=== PATIENT | female | born 1970 | race Caucasian/White ===

== ENCOUNTER 2022-04-22 18:31 | Inpatient (IN) | payer OTHER, SELFPAY ==
[2022-04-22] VITALS (26 sets, daily range): BP systolic 115–172; BP diastolic 82–110; PULSE 63–80; RESP 13–22; TEMP 36.1–36.4; O2SAT 97–100; BMI 39.6
--- NOTE | ~2022-04-22 | XR_ITS ---
EXAMINATION: XR chest ET placement Exam Date/Time: 04/22/2022 22:15 GEOSPATIAL ENGINEER HISTORY: After intubation to confirm ET placement Comparison: Same date at 7:01 PM. RESULT: Lines, tubes, and devices: Subdiaphragmatic NG tube. Endotracheal tube projecting 3.6 cm above the c liborio. Lungs and pleura: Slightly low volumes with scattered streaky opacities likely representing atelecta sis. Cardiomediastinal silhouette: Stable. Other: No acute osseous or upper abdominal finding. IMPRESSION: Endotracheal and NG tube, in good position. Reviewed, dictated and finalized at location K. PATIAL ENGINEER
--- NOTE | ~2022-04-22 | CT_ITS ---
EXAMINATION: CT brain wo con DATE: 04/22/2022 20:00 INDICATION: ams . TECHNIQUE: Computed tomography (CT) of the head was performed without intravenous contrast. The mA wa s adjusted according to patient size. Iterative reconstruction technique was employed. The dose-lengt h product was 681.00 mGy-cm. COMPARISON: None. FINDINGS: No acute intracranial hemorrhage or extra-axial fluid collection. No hydrocephalus, mass, or herniation. No acute ischemic infarct. Unremarkable dural venous sinus attenuation. No acute osseous abnormality. Mild mucosal thickening in the ethmoid air cells, the remaining aerated spaces are clear. IMPRESSION: No acute intracranial process. Reviewed, dictated and finalized at location K. CTOR WORK
--- NOTE | ~2022-04-22 | XR_ITS ---
EXAM: XR abdomen NG/feed tube insert DATE: 04/22/2022 19:15 HISTORY: OG PLACEMENT . COMPARISON: None available. FINDINGS: Cholecystomy clips. Surgical clips and suture line over the stomach. Clear lung bases. NG tube, tip and side port project over the stomach Normal bowel gas pattern. No organomegaly. No abnorm al abdominal calcification. Regional bones and soft tissues normal for age. IMPRESSION: NG tube, in good position. Reviewed, dictated and finalized at location K. EL POST CLERK IMPRESSION: NG tube, in good position.
--- NOTE | ~2022-04-22 | CT_ITS ---
EXAMINATION: CTA chest PE protocol DATE: 04/22/2022 20:03 INDICATION: respiratory distress, intubated, AMS TECHNIQUE: Computed tomography angiography (CTA) of the chest was performed with 100 mL Omnipaque-350 intravenous contrast timed to evaluate the pulmonary arteries. Coronal maximum intensity projection 3D-reconstructions were created by the technologist. The dose-length product (DLP) was 816.54 mGy-cm. Automated exposure control and iterative reconstruction technique were employed. COMPARISON: X-ray chest, same date. FINDINGS: Lung parenchyma and airways: Endotracheal tube, terminating in the lower thoracic trachea. Dependent atelectasis. Pleura: Unremarkable. Thoracic inlet, axillae and chest wall: Unremarkable. Thoracic aorta: Minimal arch ectasia and calcification.. Mediastinum: Normal. Heart and pericardium: Moderate hiatal hernia.. Coronary artery calcifications: Moderate. Upper abdomen: No significant finding. NG tube, in good position. Bones: No acute osseous finding. Pulmonary arteries: Study quality: Adequate. No pulmonary emboli detected. IMPRESSION: No CT evidence of acute pulmonary embolus. No acute thoracic process detected. Reviewed, dictated and finalized at location K. E LOG RIPSAW OPERATOR
--- NOTE | ~2022-04-22 | XR_ITS ---
EXAMINATION: XR chest ET placement Exam Date/Time: 04/22/2022 19:05 TABLE GAMES DUAL RATE SUPERVISOR HISTORY: post intubation, respiratory distress Comparison: None available. RESULT: Lines, tubes, and devices: Endotracheal tube terminating in the right mainstem bronchus. Subdiaphrag matic NG tube.. Lungs and pleura: Low volumes with crowding. No pneumothorax, focal consolidation, or large effusion. Cardiomediastinal silhouette: Stable. Other: No acute osseous or upper abdominal finding. IMPRESSION: Right mainstem bronchus intubation. At the time of dictation, the clinical team was aware of this fin ding and had repositioned the tube. Reviewed, dictated and finalized at location K. E GAMES DUAL RATE SUPERVISOR IMPRESSION: Right mainstem bronchus intubation. At the time of dictation, the clinical team was aware of this finding and had repositioned the tube.
--- NOTE | ~2022-04-22 | XR_ITS ---
Portable chest x-ray Comparison: 04/22/2022 Clinical History: Tube placement Findings: Endotracheal tube and NG tube are in satisfactory positions. Lungs remain clear. Cardiome diastinal silhouette is stable. Bones and soft tissues are unremarkable. Impression: Support tubes are unchanged. Clear lungs. Reviewed, dictated and finalized at location . ROLL WORKER Impression: Support tubes are unchanged. Clear lungs.
--- NOTE | 2022-04-22 18:40 | PC.NURSE ---
Pt given 20 Etomidate and 100 Nick at [address] Jang at bedside 6 1/2 tube, 23 at the lip, positive color change w/ equal bilat breath sounds/rise and fall
--- NOTE | 2022-04-22 18:45 | ECG_ITS ---
Measurements Intervals [place] Rate: 71 P: 55 VT: 161 QRS: 14 QRSD: 103 T: 39 QT: 410 QTc: 447 Interpretive Statements SINUS RHYTHM NONSPECIFIC ST & T-WAVE ABNORMALITY- ANTEROLAT/INF LEADS BASELINE ARTIFACT- V5 BORDERLINE ECG NO PREVIOUS ECG AVAILABLE FOR COMPARISON Electronically Signed On 04-22-2022 19:19:59 GUNSTOCK REPAIRER by Jerome Polanco D.O.
--- NOTE | 2022-04-22 18:50 | ED.AMS ---
HPI - Altered Mental Status General Chief Complaint: Altered Mental Status Stated Complaint: respiratory/nonresponsive Time Seen by Provider: 04/22/22 18:43 History of Present Illness HPI narrative: Patient is a 51-year-old female presenting with unresponsiveness. Patient is unresponsive on arrival, history is obtained by EMS at bedside. They were called for altered mental status and respiratory distress. Patient was getting ready to go to work when she started complaining to her that she felt weird. She then became unresponsive. By the time EMS arrived, she remained unresponsive with agonal respirations. She was given 2 mgs of Narcan with no response. She was noted to have equal and reactive pupils at the time. EMS attempted to intubate the patient but were unable to due to her small airway. She was given 4 mgs of Versed and 30 mgs of etomidate. On arrival, she is unresponsive. She is being bagged with 100% O2 sats. Related Data Home Medications Medication Instructions Recorded Confirmed diclofenac sodium 75 mg 75 mg PO BID 04/22/22 04/22/22 tablet,delayed release pregabalin 75 mg capsule 75 mg PO BID 04/22/22 04/22/22 quetiapine 300 mg tablet,extended 300 mg PO HS 04/22/22 04/22/22 release 24 hr trazodone 100 mg tablet 100 mg PO HS PRN Insomnia 04/22/22 04/22/22 venlafaxine 225 mg tablet,extended 225 mg PO DAILY 04/22/22 04/22/22 release 24 hr venlafaxine 75 mg capsule,extended 75 mg PO DAILY 04/22/22 04/22/22 release 24 hr lansoprazole 30 mg oral 60 mg PO DAILY 04/23/22 04/23/22 suspension,delayed release Allergies Allergy/AdvReac Type Severity Reaction Status Date / Time Penicillins Allergy Unknown Verified 04/23/22 16:06 Review of Systems Review of Systems: ROS unobtainable: Yes unobtainable due to endotracheal tube PMFSH Family History Family History (System 04/23/22 @ 16:06 by Janeth Cooney) Other Unknown family medical history Social History Social History (System 04/23/22 @ 16:06 by Janeth Cooney) Smoking status: Unknown if ever smoked Alcohol intake: current Substance use: never Spiritual care concerns: No Exam Narrative: GENERAL: Unresponsive, being bagged, 100% O2 sat HEAD: Normocephalic, atraumatic. EYES: PERRLA ENT: Blood in bilateral nares. NECK: Supple. CHEST: Coarse sounds bilaterally, being bagged by EMS, satting 100% HEART: Regular rate and rhythm ABDOMEN: Soft, nontender, nondistended EXTREMITIES: No edema. SKIN: Warm, dry, no rash. NEURO: unresponsive PSYCH: Normal mood and affect. Course Vital Signs Vital signs: Vital Signs Temperature 97.4 F L 04/22/22 18:36 Pulse Rate 72 04/22/22 18:36 Respiratory Rate 22 H 04/22/22 18:36 Blood Pressure 139/105 H 04/22/22 18:36 Pulse Oximetry 100 04/22/22 18:36 Oxygen Delivery Room Air 04/22/22 18:36 Temperature 99.2 F 04/23/22 04:00 Pulse Rate 78 04/23/22 12:00 Respiratory Rate 20 04/23/22 07:29 Blood Pressure 149/95 H 04/23/22 06:00 Pulse Oximetry 98 04/23/22 16:00 Oxygen Delivery Nasal Cannula 04/23/22 16:00 Oxygen Flow Rate 2 04/23/22 16:00 Fraction of Inspired Oxygen 35 04/23/22 09:17 Procedures Intubation Intubation #1: Intubation Date: 04/22/22 Intubation Time: 19:01 sedative: Etomidate Mg Given: 20 paralytic: Rocuronium Mg Given: 100 Laryngoscope: other (glidescope) Tube Size (cm): 6.5 Method of Intubation: orotracheal Number of Attempts: 1 Tube Secured Depth (cm): 23 Tube Placement Confirmation: visualized tube passing through cords, equal breath sounds bilaterally, no breath sounds over epigastrium and confirmation by capnometry Patient Tolerated Procedure: well Intubation Complications: none Additional Comments: post intubation CXR with R mainstem intubation - tube withdrawn approximately 3cm MDM - Altered Mental Status MDM N
[2022-04-22] MEDS: SODIUM CHLORIDE 0.9% IV 1,000 ML 999 ML IV CONT (18:55)
[2022-04-22 19:01] LABS: Glucose Point of Care 99 mg/dl (65-105)
[2022-04-22 19:05] LABS: Appearance Urine Clear (Clear); Bilirubin Urine Negative (Negative); Blood Urine Negative (Negative); Color Urine Yellow (Yellow); Glucose Urine UA Negative (Negative); Ketones Urine Negative (Negative); Leukocyte Esterase Ur Negative LEU/UL (Negative); Nitrate Urine Negative (Negative); Protein Urine Negative (Negative); Urobilinogen Urine 0.2 mg/dL (<2.0)
[2022-04-22] MEDS: FENTANYL 2,500MCG/NS250ML(*CRX 2,500 MCG/250 ML BAG IV CONT (19:05)
[2022-04-22 19:13] LABS: Bacteria Urine Trace /hpf; Mucus Urine Rare /lpf; RBC Urine 0-2 /hpf (0-2); Squamous Epithelial Cell Urine Rare /hpf (Few); WBC Urine 0-3 /hpf
[2022-04-22 19:17] LABS: Add Urine Microscopic? NO
[2022-04-22 19:23] LABS: Amphetamine Screen Urine Negative (Negative); Barbiturate Screen Urine Negative (Negative); Benzodiazepines Screen Urine Negative (Negative); Cannabinoid Screen Urine Positive (Negative); Cocaine Screen Urine Negative (Negative); Methadone Screen Urine Negative (Negative); Opiate Screen Urine Positive (Negative); Phencyclidine Screen Urine Negative (Negative)
[2022-04-22 19:32] LABS: Basophils Absolute Auto 0.1 K/mm3 (0.0-0.1); Basophils Percent Auto 0.7 % (0.2-1.2); Eosinophils Absolute Auto 0.1 K/mm3 (0-0.3); Eosinophils Percent Auto 1.3 % (0-4.4); Hematocrit 43.1 % (37.0-47.0); Immature Granulocyte Absolute 0.03 K/mm3 (0.00-0.031); Immature Granulocyte Percent A 0.4 % (0-0.5); Lymphocytes Absolute Auto 2.09 K/mm3 (0.9-3.2); Lymphocytes Percent Auto 29.8 % (18.3-44.2); Mean Corpuscular HGB Conc 32.5 g/dl (32-36); Mean Corpuscular Hemoglobin 31.4 pg (26-34); Mean Corpuscular Volume 96.6 fl (80-100); Mean Platelet Volume 10.9 fl (7.4-10.4); Monocytes Absolute Auto 0.5 K/mm3 (0.1-0.6); Neutrophils Absolute Auto 4.3 K/mm3 (1.3-6.7); Neutrophils Percent Auto 60.8 % (45.5-73.1); Platelet Count Result 186 k/mm3 (150-375); Red Blood Count 4.46 M/mm3 (4.2-5.4); Red Cell Distribution Width 13.3 % (11.5-14.5)
[2022-04-22 19:40] LABS: Alveolar/Arterial O2 Gradient 254.6 mmHg; Base Excess ABG 1.7 mEq/l (+/-2.0); Fractional Inspired Oxygen 100 %; HCO3 ABG 28.1 mEq/l (22.0-26.0); Oxygen Content ABG 20.4 %vol (16.0-22.0); Oxygen Saturation ABG 99.8 % (95.0-100.0); Oxyhemoglobin 94.1 % THb (90.0-100.0); PCO2 ABG 50.9 mmHg (35.0-45.0); PO2 ABG 407.5 mmHg (80.0-100.0); PO2 FiO2 Ratio Arterial Blood 4.07 %; Total Hemoglobin 14.6 g/dL (12.0-18.0)
[2022-04-22 19:41] LABS: Device VENTILATOR; Modified Allen's Test Pass; Site Drawn RIGHT RADIAL
[2022-04-22 19:42] LABS: Arterial Blood Gas PEEP 5 cmH2O; Arterial Blood Gas Tidal Volume 400 ml; Arterial Blood Gas Vent Mode CMV; Arterial Blood Gas Ventilator rate 14 /MIN
[2022-04-22 19:42] LABS: Alanine Aminotransferase 14 U/L (6-35); Albumin Level 3.9 g/dL (3.5-5.1); Alkaline Phosphatase 93 U/L (38-126); Anion Gap 3 mmol/L (8-16); Aspartate Amino Transferase 25 U/L (14-36); Bilirubin,Total 0.7 mg/dL (0.2-1.3); Blood Urea Nitrogen 17 mg/dL (7-17); Calcium 8.6 mg/dL (8.4-10.2); Carbon Dioxide 28 mmol/L (22-30); Chloride 106 mmol/L (98-107); Estimated CRCL calculation 102 ml/min; Estimated Glomerular Filt Rate > 60; Glucose 94 mg/dL (65-110); Potassium 3.7 mmol/L (3.4-5.0); Sodium 137 mmol/L (137-145)
[2022-04-22 19:44] LABS: Prothrombin Time 13.2 Seconds (11.1-14.7)
[2022-04-22 19:45] LABS: Partial Thromboplastin Time 26.8 SECONDS (22.3-36.8)
[2022-04-22] MEDS: MIDAZOLAM HCL (*CRX) 2 MG/2 ML VIAL IV PUSH (19:47)
[2022-04-22 19:53] LABS: NT Pro B Type Natriuretic Pept 137 pg/mL (19.9-100); Troponin I < 0.012 ng/mL (0.000-0.034)
[2022-04-22 20:08] LABS: Influenza A QL RT-PCR Negative (Negative); Influenza B QL RT-PCR Negative (Negative); RSV RNA, RT-PCR Negative (Negative); SARS-CoV-2 RNA PCR Negative
[2022-04-22] MEDS: PROPOFOL IV EMULSION 100 ML 3.51 MG IV CONT (20:32)
--- NOTE | 2022-04-22 20:35 | PM.IMHP ---
H&P: HPI History of Present Illness Date/Time: 04/22/22 20:35 Chief Complaint: Unresponsive Narrative: Patient is intubated, history is taken from ER physician and the patient's family Patient is a 51-year-old female with a history of psychiatry and sleeping disorder, brought to ED because of unresponsiveness. Per patient , patient is scheduled to work in the night, patient is a nurse during heavy equipment rental associate. Patient smoked afternoon, and went to bedroom for a nap. Patient's went to her room above 5:30 to check her up, and patient was found unresponsive. Per patient's , patient had a weak pulse but was breathing. EMS was called, arrival, patient was found to have agonal respiration. EMS gave patient 2 mg of Narcan, they could not wake patient up. Because of difficult airway for intubation, patient was bagged and sent to ED. in the ED, patient was intubated. Patient was found to have equal round reactive pupils. Patient also found to have uncontrolled hypertension. Ct of head shows no acute intracranial a show, CTA shows no PE no acute pulmonary issues. Per ER physician report, patient was prescribed the prior Seroquel, trazodone, pregabalin. Per patient's , patient does not take these medications before going to work, and the patient did not have a suicide ideation or attempt before. Drug screening is positive marijuana and opiate, patient received fentanyl in the ED. CBCs CMP unremarkable. Coffee-ground like fluid is drained from NG tube. Your physician also consulted senior materials planner, we admit patient to the ICU for close monitoring Review of Systems Review of Systems: ROS unobtainable: Yes unobtainable due to endotracheal tube Meds Home Medications and Allergies Allergies Allergy/AdvReac Type Severity Reaction Status Date / Time Penicillins Allergy Unknown Verified 04/22/22 18:48 Vital Signs Vital Signs - 24 hr 04/22/22 18:36 04/22/22 18:43 04/22/22 19:05 Temperature 97.4 F L Pulse Rate 72 79 71 Respiratory Rate 22 H 14 Blood Pressure 139/105 H Pulse Oximetry 100 Oxygen Delivery Room Air 04/22/22 19:33 04/22/22 19:01 04/22/22 19:20 Temperature 96.9 F L 97.2 F L Pulse Rate 76 66 75 Respiratory Rate 13 14 14 Blood Pressure 162/98 H 157/104 H Pulse Oximetry 100 Oxygen Delivery 04/22/22 19:29 04/22/22 19:30 04/22/22 20:08 Temperature 97.2 F L 97.2 F L 97.1 F L Pulse Rate 75 80 Respiratory Rate 14 15 Blood Pressure 160/110 H Pulse Oximetry 100 Oxygen Delivery 04/22/22 20:10 04/22/22 20:15 04/22/22 20:16 Temperature 97.1 F L 97.1 F L 97.1 F L Pulse Rate 66 78 73 Respiratory Rate 16 17 15 Blood Pressure 153/106 H 172/92 H Pulse Oximetry 100 100 100 Oxygen Delivery 04/22/22 19:45 Temperature Pulse Rate 75 Respiratory Rate 14 Blood Pressure Pulse Oximetry Oxygen Delivery Exam Narrative: GENERAL: Unresponsive, in no acute distress. Obesity. - EYES: EOMI. Anicteric. - HENT: Moist mucous membranes. - LUNGS: Clear to auscultation bilaterally, no wheezing, rhonchi, or rales. - CARDIOVASCULAR: Regular rate and rhythm. No murmur. No JVD. - ABDOMEN: Soft, non-tender and non-distended. No palpable masses. - EXTREMITIES: No edema. Peripheral pulses 2+. Non-tender. - NEUROLOGIC: No focal neurological deficits. CN II-XII grossly intact. - PSYCHIATRIC: Unresponsive and not oriented x 3. - SKIN: No rashes or lesions. Warm. - LYMPH: No cervical lymphadenopathy. H&P: Results Labs Labs: Short CBC 04/22/22 Range/Units 19:21 WBC 7.0 (4.5-10.0) K/mm3 Hgb 14.0 (12.0-15.0) g/dL Hct 43.1 (37.0-47.0) % Plt Count 186 (150-375) k/mm3 BMP 04/22/22 19:21 Sodium 137 Potassium 3.7 Chloride 106 Carbon Dioxide 28 BUN 17 Creatinine 0.70 Glucose 94 Calcium 8.6 Cardiac Enzymes 04/22/22 Range/Units 19:21 Troponin I < 0.012 (0.000-0.034) ng/mL Liver Function 04/22/22 Range/Units 1
[2022-04-22 20:45] LABS: Lactic Acid Reflex 1.1 mmol/L (0.7-2.0)
[2022-04-22 21:22] LABS: Ethanol < 10 mg/dL (<10); Salicylate < 1.0 mg/dL (2-20)
[2022-04-22 21:23] LABS: Acetaminophen < 10 ug/mL (10-30)
--- NOTE | 2022-04-22 21:44 | ADMGEN ---
This patient, Julianna Wallace, was admitted to Intensive Care Unit-8 at 2130. Patient/family oriented to hospital policies and general routines including ID bracelet, bed and alarms, visiting hours, pain management, procedures, bathroom and other care routines, personal items, smoking policy, room service/diet, and visiting hours. Information on how to activate the Rapid Response Team has been discussed. Patient/Family are encouraged to report perceived risks to care and to ask questions if they do not understand what they are told or what they should do.
[2022-04-22 21:52] LABS: Hemoglobin 13.8 g/dL (12.0-15.0)
--- NOTE | 2022-04-22 22:02 | PC.NURSE ---
unable to get admit questions done due to patient sedation and no family present. placed call to spouse at [phone], no response. awaiting call back.
[2022-04-22 22:03] LABS: Prothrombin Time 12.5 Seconds (11.1-14.7)
[2022-04-22 22:04] LABS: Partial Thromboplastin Time 33.6 SECONDS (22.3-36.8)
[2022-04-22 22:14] LABS: Troponin I < 0.012 ng/mL (0.000-0.034)
[2022-04-22] MEDS: SODIUM CHLORIDE 0.9% IV 1,000 ML 125 ML IV CONT (23:14)
[2022-04-23] VITALS (14 sets, daily range): BP systolic 138–149; BP diastolic 89–100; PULSE 66–85; RESP 16–21; TEMP 36.6–37.3; O2SAT 98–100; BMI 40.0
[2022-04-23 02:03] LABS: Troponin I < 0.012 ng/mL (0.000-0.034)
[2022-04-23 05:38] LABS: Alveolar/Arterial O2 Gradient 104.4 mmHg; Base Excess ABG -0.7 mEq/l (+/-2.0); Carboxyhemoglobin 1.2 % THb (0-2.0); Fractional Inspired Oxygen 35 %; Methemoglobin ABG 0.3 %THb (0-1.5); Oxygen Content ABG 19.7 %vol (16.0-22.0); Oxygen Saturation ABG 95.9 % (95.0-100.0); Oxyhemoglobin 94.4 % THb (90.0-100.0); PCO2 ABG 50.4 mmHg (35.0-45.0); PO2 ABG 86.6 mmHg (80.0-100.0); PO2 FiO2 Ratio Arterial Blood 2.47 %; Reduced Hemoglobin 4.1 %THb (0-5.0); Total Hemoglobin 14.8 g/dL (12.0-18.0)
[2022-04-23 05:39] LABS: Arterial Blood Gas PEEP 5 cmH2O; Arterial Blood Gas Tidal Volume 400 ml; Arterial Blood Gas Vent Mode CMV; Arterial Blood Gas Ventilator rate 14 /MIN; Device VENTILATOR; Modified Allen's Test Unable to perform; Site Drawn LEFT RADIAL
[2022-04-23] MEDS: SODIUM CHLORIDE 0.9% IV 1,000 ML 125 ML IV CONT (06:30)
[2022-04-23] MEDS: PROPOFOL IV EMULSION 100 ML 24.57 MG IV CONT (07:29)
[2022-04-23 08:52] LABS: Glucose Point of Care 102 mg/dl (65-105)
--- NOTE | 2022-04-23 09:35 | WPDCNINT ---
Assessment and Plan Assessment and plan (1) Respiratory failure: Code(s): J96.90 - Respiratory failure, unspecified, unspecified whether with hypoxia or hypercapnia Status: Acute Assessment and Plan: Patient presented with respiratory failure secondary to encephalopathy/unresponsiveness at home which could be related to accidental medication overdose, will have more answers once patient is extubated and is able to give more history -currently on CMV mode of ventilation, peep of 5, 35% FiO2. -sedated with propofol infusion -I have asked the bedside RN to discontinue propofol, will place patient on SBT and evaluate for extubation -chest x-ray this morning showed support tubes are unchanged, clear lungs. -ABGs reviewed -CTA chest on admission on 04/22/2022: No evidence of acute pulmonary embolism. No acute thoracic process detected (2) Encephalopathy: Code(s): G93.40 - Encephalopathy, unspecified Status: Acute Assessment and Plan: Encephalopathy be multifactorial -could be related to her multiple psychiatric medications -unknown if patient took accidental overdose or intentional overdose, will know more once she is extubated will to give us more history -currently she is awake, alert, nods to questions, follows simple commands and writes on paper (3) Drug overdose: Code(s): T50.901A - Poisoning by unspecified drugs, medicaments and biological substances, accidental (unintentional), initial encounter Status: Acute Assessment and Plan: Likely drug overdose -urine drug screen was positive for marijuana and opiates (patient was given fentanyl in the ER) -will obtain more information once patient is extubated Plan DVT prophylaxis: Lovenox Stress ulcer prophylaxis: Protonix Nutrition: NPO Code Status: Full code Critical Care Time Spent: 44 minutes Due to a high probability of clinically significant, life threatening deterioration, the patient required my highest level of preparedness to intervene emergently and I personally spent this critical care time directly and personally managing the patient. This critical care time included obtaining a history; examining the patient; pulse oximetry; ordering and review of studies; arranging urgent treatment with development of a management plan; evaluation of patient's response to treatment; frequent reassessment; and discussions with other providers. It was exclusive of separately billable procedures and treating other patients and teaching time. Please see Assessment and Plan section and the rest of the note for further information on patient assessment and treatment This dictation may have been done utilizing a voice recognition system. Attempts have been made to correct errors. However, there may be uncorrected grammatical, spelling, and recognitions errors present. Imaging Administrator Consult Note Consult date: 04/23/22 Reason for consult: Altered mental status, possible accidental prescription medication overdose HPI: Julianna Wallace is a 51 year old female with significant past medical history of psychiatric disorder, sleep disorder will brought to the ED after she was found with decreased responsiveness and agonal respiration at home by her . According the the patient was supposed to go for work and he went to check up in her room and he found her unresponsive with a weak pulse and agonal respirations. EMS was called, she was given Narcan 2 mg get no response. Given her agonal respirations they tried to intubate her on the field but due to her difficult airway was unable, bag-mask ventilation was used patient was brought to the ER which she was intubated. CT scan of the brain did not show any acute intracranial abnormalities, chest CTA did not show any pulmonary embolism or any acute pulmonary issues. Labs were unremarkable, urine drug screen was positive for marijuana and opiates. Initially the NG drainage was coffee-ground which could
[2022-04-23 10:42] LABS: Alveolar/Arterial O2 Gradient 97.2 mmHg; Base Excess ABG 0.9 mEq/l (+/-2.0); Fractional Inspired Oxygen 35 %; HCO3 ABG 25.5 mEq/l (22.0-26.0); Oxygen Content ABG 20.3 %vol (16.0-22.0); Oxygen Saturation ABG 97.9 % (95.0-100.0); Oxyhemoglobin 96.5 % THb (90.0-100.0); PCO2 ABG 40.6 mmHg (35.0-45.0); PO2 ABG 105.2 mmHg (80.0-100.0); PO2 FiO2 Ratio Arterial Blood 3.01 %; Total Hemoglobin 14.9 g/dL (12.0-18.0); pH ABG 7.416 (7.350-7.450)
[2022-04-23 10:43] LABS: Modified Allen's Test Pass; Site Drawn RIGHT RADIAL
[2022-04-23 10:44] LABS: Arterial Blood Gas Vent Mode SPONTANEOUS; Device VENTILATOR
[2022-04-23 10:45] LABS: Arterial Blood Gas PEEP 5 cmH2O; Arterial Blood Gas Pressure Support 8 cmH2O
[2022-04-23] MEDS: ACETAMINOPHEN 325 MG TABLET 650 MG PO (12:48)
[2022-04-23] MEDS: ENOXAPARIN 40 MG/0.4 ML SYRINGE SUB-Q (12:49)
[2022-04-23] MEDS: PANTOPRAZOLE SODIUM IV 40 MG VIAL IV PUSH (12:49)
--- NOTE | 2022-04-23 13:53 | PC.NURSE ---
Spoke with Poison control on 04/23/2022 13:52. Spoke with Dorita NUNEZ and patient Julianna Wallace has been cleared by poison control. Care Coordination has been notified.
[2022-04-23 14:28] LABS: Glucose Point of Care 116 mg/dl (65-105)
--- NOTE | 2022-04-23 15:46 | PM.DS ---
DS: Admitting Diagnosis Discharge Date 04/23/22 Admitting Diagnosis unresponsiveness DS: Discharge Diagnosis Discharge Diagnosis (1) Respiratory failure: Code(s): J96.90 - Respiratory failure, unspecified, unspecified whether with hypoxia or hypercapnia Status: Acute Assessment and Plan: Patient presented with respiratory failure secondary to encephalopathy/unresponsiveness at home which could be related to accidental medication overdose, will have more answers once patient is extubated and is able to give more history -currently on CMV mode of ventilation, peep of 5, 35% FiO2. -sedated with propofol infusion -I have asked the bedside RN to discontinue propofol, will place patient on SBT and evaluate for extubation -chest x-ray this morning showed support tubes are unchanged, clear lungs. -ABGs reviewed -CTA chest on admission on 04/22/2022: No evidence of acute pulmonary embolism. No acute thoracic process detected (2) Encephalopathy: Code(s): G93.40 - Encephalopathy, unspecified Status: Acute Assessment and Plan: Encephalopathy be multifactorial -could be related to her multiple psychiatric medications -unknown if patient took accidental overdose or intentional overdose, will know more once she is extubated will to give us more history -currently she is awake, alert, nods to questions, follows simple commands and writes on paper (3) Drug overdose: Code(s): T50.901A - Poisoning by unspecified drugs, medicaments and biological substances, accidental (unintentional), initial encounter Status: Acute Assessment and Plan: Likely drug overdose -urine drug screen was positive for marijuana and opiates (patient was given fentanyl in the ER) -will obtain more information once patient is extubated Plan DVT prophylaxis: Lovenox Stress ulcer prophylaxis: Protonix Nutrition: NPO Code Status: Full code Critical Care Time Spent: 44 minutes Due to a high probability of clinically significant, life threatening deterioration, the patient required my highest level of preparedness to intervene emergently and I personally spent this critical care time directly and personally managing the patient. This critical care time included obtaining a history; examining the patient; pulse oximetry; ordering and review of studies; arranging urgent treatment with development of a management plan; evaluation of patient's response to treatment; frequent reassessment; and discussions with other providers. It was exclusive of separately billable procedures and treating other patients and teaching time. Please see Assessment and Plan section and the rest of the note for further information on patient assessment and treatment This dictation may have been done utilizing a voice recognition system. Attempts have been made to correct errors. However, there may be uncorrected grammatical, spelling, and recognitions errors present. DS: Summary Hospital Course Hospital Course: 51 year old female with significant past medical history of psychiatric disorder and a sleep disorder was brought to the ED after she was found with decreased responsiveness and agonal respiration at home by her .? According to the , the patient was supposed to go to work and he went to check up in her room and he found her unresponsive with a weak pulse and agonal respirations.? EMS was called, she was given Narcan 2 mg get no response.? Given her agonal respirations they tried to intubate her on the field but due to her difficult airway was unable, bag-mask ventilation was used patient was brought to the ER which she was intubated.? CT scan of the brain did not show any acute intracranial abnormalities, chest CTA did not show any pulmonary embolism or any acute pulmonary issues.? Labs were unremarkable, urine drug screen was positive for marijuana and opiates.? Initially the NG drainage was coffee-ground which could be related to trauma dur
== END 2022-04-23 16:30 | disposition home or self-care (01) | DRG 917 ==
LOC: ANHED 19:23 → ANHICU 20:53
PROVIDERS: Internal Medicine; Admitting Provider Hospitalist; Emergency Provider Emergency Medicine; Visit Provider Student in an Organized Health Care Education/Training Program
DX: T42.6X2A Poisoning by other antiepileptic and sedative-hypnotic drugs, intentional self-harm, initial encounter (principal); G92.8 Other toxic encephalopathy; J96.00 Acute respiratory failure, unspecified whether with hypoxia or hypercapnia; K92.2 Gastrointestinal hemorrhage, unspecified; T40.422A Poisoning by tramadol, intentional self-harm, initial encounter; T40.2X2A Poisoning by other opioids, intentional self-harm, initial encounter; Z20.822 Contact with and (suspected) exposure to COVID-19
CPT/HCPCS: 31500; 36415; 36600; 70450; 71045; 71275; 80053; 80307; 81003; 82375; 82805; 82948; 83050; 83605; 83880; 84484; 85014; 85018; 85025; 85610; 85730; 86850; 86900; 86901; 87040; 87637; 93005; 94003; 96361; 96365; 96366; 96367; 96375; 99285; A9270; C9113; G0378; G0379; J1650; J2250; J2704; J3010; J7030; Q9967